=== PATIENT | male | born 1995 | race Caucasian/White ===

== ENCOUNTER 2017-12-05 20:19 | Emergency (ER) | payer BC ==
[~2017-12-05 20:19] MED LIST: NO HOME MEDICATIONS; NORCO 325 MG-7.1 TAB PO
[2017-12-05 20:26] VITALS: TEMP 97.9
[2017-12-05 21:28] VITALS: BP 139/95; PULSE 84
[2017-12-05] MEDS ORDERED: NORCO 325 MG-7.1 TAB PO (21:36)
[2017-12-05] MEDS ORDERED: AMOXICILLIN 8751 TAB PO (21:36)
== END 2017-12-05 21:49 | disposition home or self-care (01) ==
LOC: COL.ER 20:19
DX: S01.21XA Laceration without foreign body of nose, initial encounter (principal); Z23 Encounter for immunization; W22.8XXA Striking against or struck by other objects, initial encounter; Y92.320 Baseball field as the place of occurrence of the external cause